=== PATIENT | male | born 1990 | race Caucasian/White ===

== ENCOUNTER 2016-09-10 18:36 | Emergency (ER) | payer OTHER ==
[~2016-09-10] VITALS: Ht 188 cm; Wt 101.2 kg
[2016-09-10 20:16] VITALS: BP 110/51
== END 2016-09-10 20:21 ==
LOC: EME 18:36
DX: M25.562 Pain in left knee (principal); G89.29 Other chronic pain; Z87.891 Personal history of nicotine dependence
CPT/HCPCS: 73564; 99281; 99283